=== PATIENT | male | born 1970 | race African-American/Black ===

== ENCOUNTER 2024-10-20 23:05 | Emergency (ER) | payer SELFPAY ==
[~2024-10-20] VITALS: Ht 170.2 cm; Wt 86.0 kg
[2024-10-20 23:45] VITALS: O2SAT 98
[2024-10-21] MEDS ORDERED: KETOROLAC 15MG/ML VIAL IM ONE
[2024-10-21] MEDS: TETANUS, DIPHTHERIA, PERTUSSIS VAC/PF 0.5ML (>10YR OLD) IM ONE (03:00)
[2024-10-21] MEDS ORDERED: NAPR-1176 MT (03:26)
[2024-10-21] MEDS ORDERED: CEPH500C2 MT (03:26)
[2024-10-21] MEDS: KETOROLAC 15MG/ML VIAL IM SCH (03:28)
[2024-10-21 04:10] VITALS: BP 131/86; PULSE 55; RESP 18; TEMP 36.6; O2SAT 99
== END 2024-10-21 04:12 | disposition home or self-care (01) ==
LOC: ER 23:05
DX: S61.012A Laceration without foreign body of left thumb without damage to nail, initial encounter (principal); Z98.890 Other specified postprocedural states
CPT/HCPCS: 73130; 12001; 99284; 90715; 90471; 96372; J1885; Z7610